=== PATIENT | male | born 1995 | race Caucasian/White ===

== ENCOUNTER 2017-12-10 02:27 | Emergency (ER) | payer SELFPAY ==
[~2017-12-10] VITALS: Ht 180.3 cm; Wt 65.8 kg
--- NOTE | 2017-12-10 02:32 | PHYS DOC ---
Adult General HPI HPI Patient is a 22-year-old male brought in by EMS for evaluation of left lower chest pain left upper quadrant abdominal pain that rates to his left flank. He says that this pain woke him from his sleep approximately 1 hour prior to arrival. Patient appears somewhat slow and altered and he does admit that he drinks alcohol and uses methamphetamines. He is somewhat difficult to get history from as he does not answer questions directly. He says that he has not been in a hospital since being diagnosed with cancer 15 years ago. He does not know what kind of cancer he had and he says that he received no treatment for it so he does not know if he still has cancer. Patient is nauseated but denies any fevers chills vomiting diarrhea constipation dysuria or hematuria. He says that he has urinated less. Review of Systems Review of Systems Constitutional: Denies fever or chills [] Eyes: Denies change in visual acuity, redness, or eye pain [] HENT: Denies nasal congestion or sore throat [] Respiratory: Denies cough or shortness of breath [] Cardiovascular: + CP GI: + abdominal pain, nausea. No vomiting, bloody stools or diarrhea [] : Denies dysuria or hematuria [] Musculoskeletal: Denies back pain or joint pain [] Integument: Denies rash or skin lesions [] Neurologic: Denies headache, focal weakness or sensory changes [] All other systems were reviewed and found to be within normal limits, except as documented in this note. Physical Exam Physical Exam Constitutional: Somewhat confused and sleepy however he answers questions and moves all extremities HENT: Normocephalic, atraumatic, bilateral external ears normal, oropharynx moist, no oral exudates, nose normal. [] Eyes: PERRLA, EOMI, conjunctiva normal, no discharge. [] Neck: Normal range of motion, no tenderness, supple, no stridor. [] Cardiovascular:Heart rate regular rhythm, no murmur [] Lungs & Thorax: Bilateral breath sounds clear to auscultation [] Abdomen: Bowel sounds normal, soft, positive left upper quadrant tenderness to palpation, no masses, no pulsatile masses. [] Skin: Warm, dry, no erythema, no rash. [] Back: positive left CVA tenderness. [] Extremities: No tenderness, no cyanosis, no clubbing, ROM intact, no edema. [] Neurologic: Alert and oriented X 3, normal motor function, normal sensory function, no focal deficits noted. [] EKG EKG Sinus bradycardia at 56 beats per minutes with normal axis no obvious ST elevation or depression and normal T waves Radiology/Procedures Radiology/Procedures CT scan of the abdomen and pelvis with contrast 12/10/2017 CLINICAL HISTORY: Left-sided abdominal pain since earlier tonight. TECHNIQUE: After the intravenous administration 75 cc of Omnipaque 300, contiguous, 3 mm axial sections were obtained to the abdomen and pelvis. One or more of the following individualized dose reduction techniques were utilized for this study: 1. Automated exposure control. 2. Adjustment of the mA and/or kV according to patient size. 3. Use of iterative reconstruction technique. Images through the lung bases demonstrate minimal dependent subsegmental atelectasis bilaterally. The liver, spleen, pancreas, adrenal glands and kidneys are within normal limits. The abdominal aorta tapers normally. The gallbladder is well-distended. No free fluid or free air is within the abdomen. There is no evidence of bowel obstruction. The appendix is partially visualized and is within normal limits. Images through the pelvis demonstrate the urinary bladder distended with urine. No free fluid is seen. Minimal S-shaped curvature of the thoracolumbar spine is noted. IMPRESSION: No acute abnormality is seen. Electronically signed by: Kirit Ortiz MD (12/10/2017 4:01 AM) [facility] DICTATED AND SIGNED BY: KIRIT ORTIZ MD DATE: 12/10/17 0357 CTA scan of the Chest with Contrast (Pulmonary Embolism protocol) 12/10/2017 Clinical History: Left-sided chest pain. Shortness of breath. Technique: After the intravenous administration of 75 cc of Isovue-370, contiguous, 0.625 mm axial sections were obtained through the chest. 2 mm axial and 3D MIP coronal and sagittal reconstructed images were obtained. One or more of the following individualized dose reduction techniques were utilized for this study: 1. Automated exposure control. 2. Adjustment of the mA and/or kV according to patient size. 3. Use of iterative reconstruction technique. Findings: No filling defect is seen within the major branches of either pulmonary artery. There is no CT evidence of pulmonary embolism. The thoracic aorta is not opacified with contrast. It tapers normally. The heart is normal in size. Minimal dependent subsegmental atelectasis is seen involving both lungs. No area of consolidation, pleural effusion or pneumothorax is seen. Impression: There is no CT evidence of pulmonary embolism. Electronically signed by: Kirit Ortiz MD (12/10/2017 3:57 AM) [facility] DICTATED AND SIGNED BY: KIRIT ORTIZ MD DATE: 12/10/17 0354 Course & Med Decision Making Course & Med Decision Making Differential diagnosis is wide including splenic injury pulmonary embolism pneumothorax renal colic. We'll check labs CT treat symptoms and reassess. Patient observed in the emergency department for almost 3 hours and he improved significantly. Pain is resolved and he had no pain on repeat abdominal examination. He is returning back to a normal mental state as he is alert and oriented 3 up ambulating in the emergency department with no difficulty. He had transient bradycardia and hypoxia likely related to drug use. He was able to ambulate in the emergency department with a normal gait and his oxygen saturation was 100% on room air and his heart rate was 60. Patient is requesting to go home. Given patient appears well with normal vital signs benign physical exam and workup I see no reason to admit him to the hospital and watch him further the emergency department so he'll be discharged in stable condition. He'll be told to follow with primary care provider within 2 days and come back to the ED sooner with worsening pain fevers vomiting or other general concerns. Patient aware and agreeable with plan and verbalized understanding of the above instructions. Dragon Disclaimer Dragon Disclaimer This electronic medical record was generated, in whole or in part, using a voice recognition dictation system. Departure Departure: Impression: Primary Impression: Abdominal pain Additional Impressions: Drug abuse Ketonuria Disposition: 01 HOME, SELF-CARE Condition: STABLE Referrals: AMBER SALTER (PCP) Patient Instructions: Abdominal Pain (Nonspecific) Additional Instructions: DRINK PLENTY OF WATER. TAKE TUMS AND MAALOX FOR IMMEDIATE RELIEF. FOLLOW WITH YOUR PCP WITHIN 2 DAYS FOR RECHECK AND COME BACK TO THE ED WITH ANY NEW OR WORSENING SYMPTOMS. THANK YOU! Problem Qualifiers Primary Impression: Abdominal pain Abdominal location: left upper quadrant Qualified Codes: R10.12 - Left upper quadrant pain DOT HEATH DO Dec 10, 2017 02:32
[2017-12-10] MEDS ORDERED: IOHEXOL 300 MG/ML 75 ML VIAL. IV ONE (03:00)
[2017-12-10] MEDS ORDERED: IV NORMAL SALINE 1,000ML 1,000 ML IV ONE (03:00)
[2017-12-10] MEDS ORDERED: KETOROLAC 30 MG/ML VIAL. IV ONE (03:00)
[2017-12-10] MEDS ORDERED: CONTRAST GIVEN MC PRN (03:00)
[2017-12-10] MEDS ORDERED: LIDO:MAALOX 1:1 20 ML SINGLE DOSE PO ONE (03:00)
[2017-12-10] MEDS ORDERED: ONDANSETRON PF 4 MG/2 ML VIAL. IV ONE (03:00)
--- NOTE | 2017-12-10 03:02 | EKG ---
[address] [address] Test Date: 2017-12-10 Test Time: 02:54:51 Pat Name: DEMOND PATEL Department: Room: Gender: M [employer] Operator: : 1995 Requested By: DOT HEATH Order Number: [id number] Ravi MD: Dillon Gunter Measurements Intervals [place] Rate: 56 P: 59 [place]: 142 QRS: 71 QRSD: 96 T: 78 QT: 388 QTc: 377 Interpretive Statements SINUS RHYTHM NONSPECIFIC ST-T WAVE CHANGES. RI6.01 No previous ECG available for comparison Electronically Signed On 12-15-2017 11:24:26 [employer] [employer]ORTER by Dillon Gunter
[2017-12-10 03:07] LABS: BASO # 0.1 x10^3/uL (0.0-0.2); BASO % 1 % (0-3); EOS # 0.2 x10^3/uL (0.0-0.7); EOS % 3 % (0-3); HEMATOCRIT 47.9 % (39.0-53.0); HEMOGLOBIN 16.6 g/dL (13.0-17.5); LYMPH # 1.9 x10^3/uL (1.0-4.8); LYMPH % 27 % (24-48); MEAN CORPUSCULAR HEMOGLOBIN 31 pg (25-35); MEAN CORPUSCULAR HGB CONC 35 g/dL (31-37); MEAN CORPUSCULAR VOLUME 88 fL (79-100); MONO # 0.7 x10^3/uL (0.0-1.1); MONO % 10 % (0-9); NEUT # 4.3 x10^3uL (1.8-7.7); NEUT % 60 % (31-73); PLATELET COUNT 233 x10^3/uL (140-400); RED BLOOD COUNT 5.42 x10^6/uL (4.30-5.70); RED CELL DISTRIBUTION WIDTH 13.2 % (11.5-14.5); WHITE BLOOD COUNT 7.1 x10^3/uL (4.0-11.0)
[2017-12-10 03:23] LABS: ALBUMIN 4.2 g/dL (3.4-5.0); ALBUMIN/GLOBULIN RATIO 1.2 (1.0-1.7); CALCIUM 9.3 mg/dL (8.5-10.1); CREATININE 0.9 mg/dL (0.7-1.3); GFR 105.5; POTASSIUM 3.6 mmol/L (3.5-5.1); TOTAL BILIRUBIN 1.6 mg/dL (0.2-1.0); TOTAL PROTEIN 7.6 g/dL (6.4-8.2)
--- NOTE | 2017-12-10 04:00 | RAD ---
CTA scan of the Chest with Contrast (Pulmonary Embolism protocol) 12/10/2017 Clinical History: Left-sided chest pain. Shortness of breath. Technique: After the intravenous administration of 75 cc of Isovue-370, contiguous, 0.625 mm axial sections were obtained through the chest. 2 mm axial and 3D MIP coronal and sagittal reconstructed images were obtained. One or more of the following individualized dose reduction techniques were utilized for this study: 1. Automated exposure control. 2. Adjustment of the mA and/or kV according to patient size. 3. Use of iterative reconstruction technique. Findings: No filling defect is seen within the major branches of either pulmonary artery. There is no CT evidence of pulmonary embolism. The thoracic aorta is not opacified with contrast. It tapers normally. The heart is normal in size. Minimal dependent subsegmental atelectasis is seen involving both lungs. No area of consolidation, pleural effusion or pneumothorax is seen. Impression: There is no CT evidence of pulmonary embolism. Electronically signed by: Kirit Caro MD (12/10/2017 3:57 AM) [id number]
--- NOTE | 2017-12-10 04:04 | RAD ---
CT scan of the abdomen and pelvis with contrast 12/10/2017 CLINICAL HISTORY: Left-sided abdominal pain since earlier tonight. TECHNIQUE: After the intravenous administration 75 cc of Omnipaque 300, contiguous, 3 mm axial sections were obtained to the abdomen and pelvis. One or more of the following individualized dose reduction techniques were utilized for this study: 1. Automated exposure control. 2. Adjustment of the mA and/or kV according to patient size. 3. Use of iterative reconstruction technique. Images through the lung bases demonstrate minimal dependent subsegmental atelectasis bilaterally. The liver, spleen, pancreas, adrenal glands and kidneys are within normal limits. The abdominal aorta tapers normally. The gallbladder is well-distended. No free fluid or free air is within the abdomen. There is no evidence of bowel obstruction. The appendix is partially visualized and is within normal limits. Images through the pelvis demonstrate the urinary bladder distended with urine. No free fluid is seen. Minimal S-shaped curvature of the thoracolumbar spine is noted. IMPRESSION: No acute abnormality is seen. Electronically signed by: Kirit Caro MD (12/10/2017 4:01 AM) [id number]
[2017-12-10 04:18] LABS: BARBITURATES NEG (NEG); BENZODIAZEPINES NEG (NEG); CANNABINOIDS POS (NEG); COCAINE NEG (NEG); METHADONE NEG (NEG); OPIATES NEG (NEG); PHENCYCLIDINE NEG (NEG)
[2017-12-10 04:21] LABS: BILIRUBIN,URINE NEG (NEG); CLARITY,URINE CLEAR; COLOR,URINE YELLOW; GLUCOSE,URINE NEG (NEG)
[2017-12-10 04:22] LABS: BACTERIA,URINE 0 /HPF (0-FEW); NITRITE,URINE NEG (NEG); RBC,URINE OCC /HPF (0-2); SQUAMOUS EPITHELIAL CELL,UR FEW /LPF; UROBILINOGEN,URINE 1 mg/dL (0.2 mg/dL)
[2017-12-10 04:24] LABS: AMPHETAMINE/METHAMPHETAMINE POS (NEG)
[2017-12-10 05:05] VITALS: BP 101/50
== END 2017-12-10 05:10 | disposition home or self-care (01) ==
LOC: ER 02:27
DX: R10.12 Left upper quadrant pain (principal); R07.89 Other chest pain; F19.10 Other psychoactive substance abuse, uncomplicated; R82.4 Acetonuria
CPT/HCPCS: 36415; 71275; 74177; 80053; 80307; 81001; 83690; 83735; 84484; 85025; 93005; 96361; 96374; 96375; 99285; G0480; J1885; J2405; J3010; Q9967; G0479; J7030